=== PATIENT | male | born 1985 | race Caucasian/White ===

== ENCOUNTER 2018-03-22 17:20 | Emergency (ER) | payer MEDICAID, MEDICARE ==
[~2018-03-22] VITALS: Ht 177.8 cm; Wt 97.7 kg
[2018-03-22 17:22] VITALS: BP 126/85
[2018-03-22] MEDS ORDERED: SULFAMETHOX/TRIMETH DS 800-160 MG/TABLET PO ONE (19:00)
[2018-03-22] MEDS ORDERED: KETOROLAC TROMETHAMINE 60 MG/2 ML VIAL IM ONE (19:00)
== END 2018-03-22 19:33 | disposition home or self-care (01) ==
LOC: EMS 17:22
DX: L03.116 Cellulitis of left lower limb (principal); L03.115 Cellulitis of right lower limb; F41.9 Anxiety disorder, unspecified; Z88.8 Allergy status to other drugs, medicaments and biological substances
CPT/HCPCS: 96372; 99283; J1885